=== PATIENT | female | born 1960 ===

== ENCOUNTER → 2018-06-20 | Outpatient (REF) ==
--- NOTE | 2018-06-21 02:07 | REP ---
Clinical: Degenerative pain. Technique: AP, lateral, bilateral oblique and sunrise views left knee . Findings: Generalized age-related changes are appreciated. No overt osteoarthritic degenerative findings noted. The osseous structures and joint spaces are intact and there is no evidence for acute fracture or dislocation. No joint effusion is appreciated. Surrounding soft tissues are unremarkable. No subcutaneous emphysema or radiodense foreign body. Impression: Generalized age-related changes. No overt osteoarthritic findings appreciated. No acute fracture or dislocation. Electronically Signed by Man Cain MD 06/21/2018 01:59 A
--- NOTE | 2018-06-21 02:35 | REP ---
Clinical: Degenerative back pain. Technique: AP, lateral, coned-down views of the lumbosacral spine. Findings: Alignment and lordosis maintained. No acute fracture / compression injury or subluxation. Mild multilevel degenerative changes include endplate sclerosis with small marginal osteophyte formation and minimal disc space narrowing. Hypertrophic facet changes at L5-S1 are also suggested. No obvious spondylolisthesis. Impression: Mild multilevel degenerative spondylosis. Electronically Signed by Man Cain MD 06/21/2018 02:26 A
== END ==
LOC: M SMT 14:49
PROVIDERS: ATTEND Internal Medicine
DX: M25.562 Pain in left knee (principal); M47.897 Other spondylosis, lumbosacral region